=== PATIENT | female | born 1940 | race Caucasian/White ===

== ENCOUNTER 2018-10-27 20:09 | Inpatient (IN) | payer MEDICARE, BC ==
[2018-10-27] MEDS ORDERED: SODIUM CHLORIDE 0.9% 500 ML IV ONE (20:46)
[2018-10-27 21:38] LABS: BASO % 0.1 % (0-6); EOS % 0.1 % (0-6); HEMATOCRIT 43.5 % (35.0-47.0); HEMOGLOBIN 14.5 gm/dl (11.6-16.0); LYMPH % 4.8 % (16-45); MEAN CELL VOLUME 89.7 fl (81-97); MEAN CORPUSCULAR HEMOGLOBIN 29.9 pg (27-33); MEAN CORPUSCULAR HGB CONC 33.3 g/dl (32-36); MEAN PLATELET VOLUME 9.9 fl (7.4-10.4); MONO % 1.4 % (0-9); PLATELET COUNT 146 K/uL (130-400); RED BLOOD COUNT 4.85 M/uL (3.80-5.40); RED CELL DISTRIBUTION WIDTH 13.9 % (11.5-14.5); WHITE BLOOD COUNT W/O DIFF 13.2 K/uL (4.2-12.2)
[2018-10-27 21:49] LABS: LACTIC ACID 1.8 mmol/L (0.5-2.2)
[2018-10-27 21:54] LABS: ALB/GLOB RATIO 1.3 (1.1-1.8); ALBUMIN 3.9 g/dL (4.0-5.0); BILIRUBIN,TOTAL 1.2 mg/dL (0.2-1.0); CREATININE 1.5 mg/dL (0.5-0.9); TOTAL PROTEIN 6.8 g/dL (6.6-8.7)
[2018-10-27 21:55] LABS: CKMB 1.7 ng/mL (<3.77); INR 1.1; PARTIAL THROMBOPLASTIN TIME 26.1 SECONDS (24.5-39.1); PROTHROMBIN TIME (PATIENT) 11.3 SECONDS (9.5-12.1)
--- NOTE | 2018-10-27 22:04 | Emergency Department Record ---
History of Present Illness - General Chief complaint: Flank Pain Stated complaint: CRAMPS STARTING IN THE BACK GOING TO FRONT Time Seen by Provider: 10/27/18 20:36 Source: Patient Mode of Arrival: Ambulatory Limitations: No limitations - History of Present Illness Initial comments: pt started running a fever today with flank pain that rediates to the front and cramps and incontinence Onset/Timin -: Days(s) Location: RLQ Radiation: R flank Severity: Moderate Severity scale (1-10): 6 Quality: Aching, Sharp, Other Consistency: Constant Improves with: None Worsens with: None Patient : No Associated Symptoms: Other - Related Data Home Medications Medication Instructions Recorded Confirmed Last Taken Calcium Carbonate [Calcium] 500 mg PO DAILY 10/27/18 10/27/18 Unknown Docusate Sodium [Colace] 100 mg PO DAILY 10/27/18 10/27/18 Unknown Duloxetine HCl 40 mg PO DAILY 10/27/18 10/27/18 Unknown Guaifenesin [Mucinex] 600 mg PO BID 10/27/18 10/27/18 Unknown Melatonin 5 mg PO DAILY 10/27/18 10/27/18 Unknown Mirtazapine 7.5 mg PO DAILY 10/27/18 10/27/18 Unknown Multivit-Min/FA/Lycopen/Lutein 1 each PO DAILY 10/27/18 10/27/18 Unknown [Centrum Silver Tablet] Potassium Chloride 10 meq PO DAILY 10/27/18 10/27/18 Unknown Prednisone [Prednisone 5Mg] 5 mg PO DAILY 10/27/18 10/27/18 Unknown Allergies Allergy/AdvReac Type Severity Reaction Status Date / Time adhesive tape Allergy Intermediate PT UNSURE Verified 02/06/16 12:55 OF REACTION hydroxychloroquine sulfate Allergy Intermediate PT UNSURE Verified 02/06/16 12: 55 [From Plaquenil] OF REACTION nafcillin Allergy Intermediate PT UNSURE Verified 02/06/16 12:55 OF REACTION Sulfa (Sulfonamide Allergy Intermediate PT UNSURE Verified 02/06/16 12:55 Antibiotics) OF REACTION gold shot Allergy Intermediate PT UNSURE Uncoded 02/06/16 12:55 OF REACTION Travel Screening - Travel/Exposure Within Last 30 Days Have you traveled within the last 30 days?: No - Travel/Exposure Within Last Year Have you traveled outside the [place] in the last year?: No - Additonal Travel Details Have you been exposed to anyone with a communicable illness?: No - Travel Symptoms Symptom Screening: Fever (GT 100.4) Review of Systems Reviewed: No additional complaints except as noted below Constitutional: Reports: As per HPI, Fever, Weakness. Denies: Chills, Malaise, Night sweats, Weight change Eyes: Reports: As per HPI. Denies: Eye discharge, Eye pain, Photophobia, Vision change ENT: Reports: As per HPI. Denies: Congestion, Dental pain, Ear pain, Epistaxis , Hearing loss, Throat pain Respiratory: Reports: As per HPI. Denies: Cough, Dyspnea, Hemoptysis, Stridor, Wheezes Cardiovascular: Reports: As per HPI. Denies: Arrhythmia, Chest pain, Dyspnea on exertion, Edema, Murmurs, Orthopnea, Palpitations, Paroxysmal nocturnal dyspnea, Rheumatic Fever, Syncope Endocrine: Reports: As per HPI. Denies: Fatigue, Heat or cold intolerance, Polydipsia, Polyuria Gastrointestinal: Reports: As per HPI. Denies: Abdominal pain, Constipation, Diarrhea, Hematemesis, Hematochezia, Melena, Nausea, Vomiting Genitourinary: Reports: As per HPI, Incontinence. Denies: Abnormal menses, Discharge, Dyspareunia, Dysuria, Frequency, Hematuria, Retention, Urgency Musculoskeletal: Reports: As per HPI. Denies: Arthralgia, Back pain, Gout, Joint swelling, Myalgia, Neck pain Skin: Reports: As per HPI. Denies: Bruising, Change in color, Change in hair/ nails, Lesions, Pruritus, Rash Neurological: Reports: As per HPI. Denies: Abnormal gait, Confusion, Headache, Numbness, Paresthesias, Seizure, Tingling, Tremors, Vertigo, Weakness Psychiatric: Reports: As per HPI. Denies: Anxiety, Auditory hallucinations, Depression, Homicidal thoughts, Suicidal thoughts, Visual hallucinations Hematological/Lymphatic: Reports: As per HPI. Denies: Anemia, Blood Clots, Easy bleeding, Easy bruising, Swollen glands Past Medical History - SOCIAL HISTORY Smoking Status: Never smoker Alcohol Use: None Drug Use: None - RESPIRATORY Hx Respiratory Disorders: No - CARDIOVASCULAR Hx Cardio Disorders: Yes Comment:: heart murmur - NEURO Hx Neuro Disorders: Yes Comment:: vertigo - GI Hx GI Disorders: Yes Hx Liver Disease: Yes (cirrhosis) - Hx Genitourinary Disorders: Yes Hx Renal Disease: Yes (?) - ENDOCRINE Hx Endocrine Disorders: Yes Hx Diabetes: Yes Hx Thyroid Disease: Yes - MUSCULOSKELETAL Hx Musculoskeletal Disorders: Yes Hx Arthritis: Yes (RA) Hx Gout: Yes - PSYCH Hx Psych Problems: No - HEMATOLOGY/ONCOLOGY Hx Hematology/Oncology Disorders: No Family Medical History Any Significant Family History?: No Hx Cancer: Grandparents Hx Diabetes: Grandparents Hx Heart Disease: Grandparents Hx Stroke: Grandparents Physical Exam - General General Appearance: Alert, Oriented x3, Cooperative, Mild distress - Head Head exam: Normal inspection - Eye Eye exam: Normal appearance, PERRL, EOMI Pupils: Normal accommodation - ENT ENT exam: Normal exam, Mucous membranes moist, Normal external ear exam, Normal orophraynx Ear exam: Normal external inspection. negative: External canal tenderness Nasal Exam: Normal inspection. negative: Discharge, Sinus tenderness Mouth exam: Normal external inspection, Tongue normal Teeth exam: Normal inspection. negative: Dental caries Throat exam: Normal inspection. negative: Tonsillar erythema, Tonsillar exudate - Neck Neck exam: Normal inspection, Full ROM. negative: Tenderness - Respiratory Respiratory exam: Normal lung sounds bilaterally. negative: Respiratory distress - Cardiovascular Cardiovascular Exam: Regular rate, Normal rhythm, Normal heart sounds - GI/Abdominal GI/Abdominal exam: Soft, Normal bowel sounds. negative: Tenderness - Rectal Rectal exam: Deferred - exam: Deferred - Extremities Extremities exam: Normal inspection, Full ROM, Normal capillary refill. negative: Tenderness - Back Back exam: Reports: Normal inspection, Full ROM. Denies: Muscle spasm, Rash noted, Tenderness - Neurological Neurological exam: Alert, Normal gait, Oriented X3, Reflexes normal - Psychiatric Psychiatric exam: Normal affect, Normal mood - Skin Skin exam: Dry, Intact, Mottled, Petechiae, Warm, Other (chronic purpura) Course Vital Signs 10/27/18 20:21 Temperature 102.4 F H Pulse Rate 138 H Respiratory 24 Rate Blood Pressure 145/90 Pulse Ox 138 H - Reevaluation(s) Reevaluation #1: 10/28/18 00:05 pt feels better. Medical Decision Making - Lab Data Result diagrams: 10/27/18 20:50 10/27/18 20:50 Lab Results 12/21/18 12/21/18 12/21/18 Range/Units 20:50 20:50 20:50 WBC 13.2 H (4.2-12.2) K/uL RBC 4.85 (3.80-5.40) M/uL Hgb 14.5 (11.6-16.0) gm/dl Hct 43.5 (35.0-47.0) % MCV 89.7 (81-97) fl MCH 29.9 (27-33) pg MCHC 33.3 (32-36) g/dl RDW 13.9 (11.5-14.5) % Plt Count 146 (130-400) K/uL MPV 9.9 (7.4-10.4) fl Lymphocytes % 4.8 L (16-45) % Monocytes % 1.4 (0-9) % Eosinophils % 0.1 (0-6) % Basophils % 0.1 (0-6) % PT 11.3 (9.5-12.1) SECONDS INR 1.1 APTT 26.1 (24.5-39.1) SECONDS Sodium 144 (136-145) mmol/L Potassium 4.8 H (3.4-4.5) mmol/L Chloride 106 (98-107) mmol/L Carbon Dioxide 21.0 L (22-29) mmol/L Anion Gap 17.0 H (7-16) BUN 32 H (8-23) mg/dL Creatinine 1.5 H (0.5-0.9) mg/dL Estimated GFR 36 mL/min Random Glucose 179 H (74-109) mg/dL Lactic Acid 1.8 (0.5-2.2) mmol/L Calcium 9.4 (8.8-10.2) mg/dL Total Bilirubin 1.20 H (0.2-1.0) mg/dL AST 23 (10.0-35.0) U/L ALT 18 (<33) U/L Alkaline Phosphatase 104 (35-104) U/L CK-MB (CK-2) 1.7 (<3.77) ng/mL Total Protein 6.8 (6.6-8.7) g/dL Albumin 3.9 L (4.0-5.0) g/dL Globulin 2.9 (1.4-4.8) gm/dL Albumin/Globulin Ratio 1.3 (1.1-1.8) Disposition Disposition: Admit Clinical Impression: Pyelonephritis, acute Disposition: Still a Patient at [facility] Decision to Admit: Admit from ER Decision to Admit Date: 10/28/18 Decision to Admit Time: 00:05 Quality - Quality Measures Quality Measures: N/A - Blood Pressure Screening Does Patient Have Any of the Following: No Blood Pressure Classification: Hypertensive Reading Systolic Measurement: 145 Diastolic Measurement: 90 Screening for High Blood Pressure: < First Hypertensive BP, F/U Documented > [ [id number]] First Hypertensive Follow-up Interventions: Follow-up with rescreen GT 1 day and LT 4 weeks.
[2018-10-27 22:14] LABS: PLATELET ESTIMATE NORMAL (NORMAL)
[2018-10-27 23:14] LABS: URINE APPEARANCE CLOUDY; URINE BILIRUBIN SMALL (NEGATIVE); URINE BLOOD MODERATE (NEGATIVE); URINE COLOR YELLOW; URINE GLUCOSE (UA) NEGATIVE (NEGATIVE); URINE KETONE TRACE (NEGATIVE); URINE LEUKOCYTE ESTERASE LARGE (NEGATIVE); URINE NITRITE NEGATIVE (NEGATIVE); URINE UROBILINOGEN 0.2 E.U./dL (0.20 - 1.00)
[2018-10-27 23:25] LABS: URINE RBC 0 - 2 (NONE SEEN)
[2018-10-27 23:26] LABS: URINE BACTERIA 4+; URINE EPITHELIAL CELLS NONE SEEN (FEW)
[2018-10-28] MEDS ORDERED: CIPROFLOXACIN LACTATE/D5W 400 MG/200 ML BAG IVPB ONE (00:02)
[2018-10-28] MEDS ORDERED: HYDROCODONE/APAP 10/325 TABLET PO PRN (01:02)
[2018-10-28] MEDS ORDERED: ACETAMINOPHEN 500 MG TABLET PO PRN (01:02)
[2018-10-28] MEDS ORDERED: CIPROFLOXACIN LACTATE/D5W 400 MG/200 ML BAG IVPB SCH (01:02)
[2018-10-28] MEDS: PANTOPRAZOLE SODIUM 40 MG TABLET PO SCH ×3 (02:20→21:21)
[2018-10-28] MEDS: HYDROCODONE/APAP 10/325 TABLET PO SCH ×4 (02:20→21:21)
[2018-10-28] MEDS: MELATONIN 5 MG TABLET PO SCH ×2 (02:20→21:21)
[2018-10-28] MEDS: DOXYCYCLINE HYCLATE 100 MG CAPSULE PO SCH ×3 (02:20→21:21)
[2018-10-28] MEDS: GABAPENTIN 100 MG CAPSULE PO SCH ×4 (02:20→21:21)
--- NOTE | 2018-10-28 07:45 | History & Physical ---
History of Present Illness - Date of Service Date of Service for History & Physical: 10/28/18 - History of Present Illness Admitting Diagnosis: pyelonephritis History of Present Illness: Mrs. Nayak is a 77 y/o female with complaint of feeling weak and muscles spasms. The patient's daughter says that she was shaking and having chills and she took her mother's temperature and it was 102 deg. She says that she was urinating more and was not able to control it. She also reports having sharp pain of the right flank with radiation to her abdomen. The patient has diabetes II, RA, liver cirrhosis, fibromyalgia amongst other things. On admission the patient's UA was positive for leukocytes and numerous WBCs. She was admitted and started on IV Cipro q12H. PCP: Dr. Peguero Travel Screening - Travel/Exposure Within Last 30 Days Have you traveled within the last 30 days?: No - Travel/Exposure Within Last Year Have you traveled outside the [place] in the last year?: No - Additonal Travel Details Have you been exposed to anyone with a communicable illness?: No - Travel Symptoms Symptom Screening: Fever (Subjective), Joint & Muscle Aches, Chills Review of Systems Constitutional: Reports: As per HPI, Fever, Weakness. Denies: Chills, Malaise, Night sweats, Weight change Eyes: Reports: As per HPI. Denies: Eye discharge, Eye pain, Photophobia, Vision change ENT: Reports: As per HPI. Denies: Congestion, Dental pain, Ear pain, Epistaxis , Hearing loss, Throat pain Respiratory: Reports: As per HPI. Denies: Cough, Dyspnea, Hemoptysis, Stridor, Wheezes Cardiovascular: Reports: As per HPI. Denies: Arrhythmia, Chest pain, Dyspnea on exertion, Edema, Murmurs, Orthopnea, Palpitations, Paroxysmal nocturnal dyspnea, Rheumatic Fever, Syncope Endocrine: Reports: As per HPI. Denies: Fatigue, Heat or cold intolerance, Polydipsia, Polyuria Gastrointestinal: Reports: As per HPI. Denies: Abdominal pain, Constipation, Diarrhea, Hematemesis, Hematochezia, Melena, Nausea, Vomiting Genitourinary: Reports: As per HPI, Incontinence. Denies: Abnormal menses, Discharge, Dyspareunia, Dysuria, Frequency, Hematuria, Retention, Urgency Musculoskeletal: Reports: As per HPI. Denies: Arthralgia, Back pain, Gout, Joint swelling, Myalgia, Neck pain Skin: Reports: As per HPI. Denies: Bruising, Change in color, Change in hair/ nails, Lesions, Pruritus, Rash Neurological: Reports: As per HPI. Denies: Abnormal gait, Confusion, Headache, Numbness, Paresthesias, Seizure, Tingling, Tremors, Vertigo, Weakness Psychiatric: Reports: As per HPI. Denies: Anxiety, Auditory hallucinations, Depression, Homicidal thoughts, Suicidal thoughts, Visual hallucinations Hematological/Lymphatic: Reports: As per HPI. Denies: Anemia, Blood Clots, Easy bleeding, Easy bruising, Swollen glands Past Medical History - SOCIAL HISTORY Smoking Status: Never smoker Alcohol Use: None Drug Use: None - RESPIRATORY Hx Respiratory Disorders: No - CARDIOVASCULAR Hx Cardio Disorders: Yes Comment:: heart murmur - NEURO Hx Neuro Disorders: Yes Comment:: vertigo - GI Hx GI Disorders: Yes Hx Liver Disease: Yes (cirrhosis) - Hx Genitourinary Disorders: Yes Hx Renal Disease: Yes (?) - ENDOCRINE Hx Endocrine Disorders: Yes Hx Diabetes: Yes Hx Thyroid Disease: Yes - MUSCULOSKELETAL Hx Musculoskeletal Disorders: Yes Hx Arthritis: Yes (RA) Hx Gout: Yes - PSYCH Hx Psych Problems: No - HEMATOLOGY/ONCOLOGY Hx Hematology/Oncology Disorders: No Family Medical History Any Significant Family History?: No Hx Cancer: Grandparents Hx Diabetes: Grandparents Hx Heart Disease: Grandparents Hx Stroke: Grandparents H&P Meds/Allergies - Allergies Allergies: Allergies Allergy/AdvReac Type Severity Reaction Status Date / Time adhesive tape Allergy Intermediate PT UNSURE Verified 02/06/16 12:55 OF REACTION hydroxychloroquine sulfate Allergy Intermediate PT UNSURE Verified 02/06/16 12: 55 [From Plaquenil] OF REACTION nafcillin Allergy Intermediate PT UNSURE Verified 02/06/16 12:55 OF REACTION Sulfa (Sulfonamide Allergy Intermediate PT UNSURE Verified 02/06/16 12:55 Antibiotics) OF REACTION gold shot Allergy Intermediate PT UNSURE Uncoded 02/06/16 12:55 OF REACTION - Home Medications Home Medications Medication Instructions Recorded Confirmed Last Taken Calcium Carbonate [Calcium] 500 mg PO DAILY 10/27/18 10/27/18 Unknown Docusate Sodium [Colace] 100 mg PO DAILY 10/27/18 10/27/18 Unknown Duloxetine HCl 40 mg PO DAILY 10/27/18 10/27/18 Unknown Guaifenesin [Mucinex] 600 mg PO BID 10/27/18 10/27/18 Unknown Melatonin 5 mg PO DAILY 10/27/18 10/27/18 Unknown Mirtazapine 7.5 mg PO DAILY 10/27/18 10/27/18 Unknown Multivit-Min/FA/Lycopen/Lutein 1 each PO DAILY 10/27/18 10/27/18 Unknown [Centrum Silver Tablet] Potassium Chloride 10 meq PO DAILY 10/27/18 10/27/18 Unknown Prednisone [Prednisone 5Mg] 5 mg PO DAILY 10/27/18 10/27/18 Unknown - Active Medications Active Medications: Current Medications Acetaminophen (Tylenol 500mg Tab) 1,000 mg PO Q6H PRN PRN Reason: PAIN - MILD(1-4)/FEVER Hydrocodone Bitart/Acetaminophen ([place] 10mg/325mg) 1 each PO Q6H [facility] Last Admin: 10/28/18 02:20 Dose: 1 each Docusate Sodium (Colace) 100 mg PO DAILY [facility] Doxycycline Hyclate (Vibramycin) 100 mg PO BID [facility] Last Admin: 10/28/18 02:20 Dose: 100 mg Fentanyl (Duragesic) 25 mcg TD Q72H [facility] Stop: 11/04/18 11:01 Gabapentin (Neurontin) 100 mg PO TID [facility] Last Admin: 10/28/18 02:20 Dose: 100 mg Ciprofloxacin Lactate (Cipro) 400 mg in 200 mls @ 200 mls/hr IVPB Q24H [facility] Stop: 11/03/18 00:01 Melatonin (Melatonin) 5 mg PO QHS [facility] Last Admin: 10/28/18 02:20 Dose: 5 mg Mirtazapine (Remeron) 7.5 mg PO DAILY [facility] Miscellaneous (Remove Patch) 1 each TD Q72H [facility] Non-Formulary Medication (Duloxetine Hcl [Duloxetine Hcl]) 40 mg PO DAILY [facility] Non-Formulary Medication (Lactobacillus Acidophilus [Acidophilus]) 175 mg PO BID [facility] Pantoprazole Sodium (Protonix) 40 mg PO BID [facility] Last Admin: 10/28/18 02:20 Dose: 40 mg Prednisone (Prednisone 5mg) 5 mg PO DAILY [facility] Physical Exam - Vital Signs Vital Signs: Vital Signs - Last 24 Hrs Temp Pulse Pulse Resp BP BP Pulse Ox 10/28/18 06:00 98.2 F 72 16 108/48 100 10/28/18 02:09 93 H 17 10/28/18 02:00 87 16 129/48 17 L 10/28/18 01:00 97.5 F L 93 H 17 100/45 99 10/27/18 23:50 99 H 20 108/63 97 10/27/18 21:45 99.4 F 110 H 20 123/61 98 10/27/18 20:21 102.4 F H 138 H 24 145/90 100 - General General Appearance: Alert, Oriented x3, Cooperative, Mild distress Limitations: No limitations - Head Head exam: Normal inspection - Eye Eye exam: Normal appearance, PERRL, EOMI Pupils: Normal accommodation - ENT ENT exam: Normal exam, Mucous membranes moist, Normal external ear exam, Normal orophraynx Ear exam: Normal external inspection. negative: External canal tenderness Nasal Exam: Normal inspection. negative: Discharge, Sinus tenderness Mouth exam: Normal external inspection, Tongue normal Teeth exam: Normal inspection. negative: Dental caries Throat exam: Normal inspection. negative: Tonsillar erythema, Tonsillar exudate - Neck Neck exam: Normal inspection, Full ROM. negative: Tenderness - Respiratory Respiratory exam: Normal lung sounds bilaterally. negative: Respiratory distress - Cardiovascular Cardiovascular Exam: Regular rate, Normal rhythm, Normal heart sounds - GI/Abdominal GI/Abdominal exam: Soft, Normal bowel sounds. negative: Tenderness - Rectal Rectal exam: Deferred - exam: Deferred - Extremities Extremities exam: Normal inspection, Full ROM, Normal capillary refill. negative: Tenderness - Back Back exam: Reports: Normal inspection, Full ROM. Denies: Muscle spasm, Rash noted, Tenderness - Neurological Neurological exam: Alert, Normal gait, Oriented X3, Reflexes normal - Psychiatric Psychiatric exam: Normal affect, Normal mood - Skin Skin exam: Dry, Intact, Mottled, Petechiae, Warm, Other (chronic purpura) Results - Labs Result Diagrams: 10/27/18 20:50 10/27/18 20:50 Labs Last 24 Hours: Laboratory Results - last 24 hr 10/27/18 10/27/18 10/27/18 20:50 20:50 20:50 WBC 13.2 H RBC 4.85 Hgb 14.5 Hct 43.5 MCV 89.7 MCH 29.9 MCHC 33.3 RDW 13.9 Plt Count 146 MPV 9.9 Neutrophils % 90.0 H Band Neutrophils % 8.0 H Lymphocytes % 4.8 L Monocytes % 1.4 Eosinophils % 0.1 Basophils % 0.1 Lymphocytes 2.0 L Monocytes Not Reportable Platelet Estimate Normal RBC Morphology Normal PT 11.3 INR 1.1 APTT 26.1 Sodium 144 Potassium 4.8 H Chloride 106 Carbon Dioxide 21.0 L Anion Gap 17.0 H BUN 32 H Creatinine 1.5 H Estimated GFR 36 Random Glucose 179 H Lactic Acid 1.8 Calcium 9.4 Total Bilirubin 1.20 H AST 23 ALT 18 Alkaline Phosphatase 104 CK-MB (CK-2) 1.7 Total Protein 6.8 Albumin 3.9 L Globulin 2.9 Albumin/Globulin Ratio 1.3 Urine Color Urine Appearance Urine pH Ur Specific [place] Urine Protein Urine Glucose (UA) Urine Ketones Urine Blood Urine Nitrite Urine Bilirubin Urine Urobilinogen Ur Leukocyte Esterase Urine RBC Urine WBC Ur Epithelial Cells Urine Bacteria 10/27/18 23:05 WBC RBC Hgb Hct MCV MCH MCHC RDW Plt Count MPV Neutrophils % Band Neutrophils % Lymphocytes % Monocytes % Eosinophils % Basophils % Lymphocytes Monocytes Platelet Estimate RBC Morphology PT INR APTT Sodium Potassium Chloride Carbon Dioxide Anion Gap BUN Creatinine Estimated GFR Random Glucose Lactic Acid Calcium Total Bilirubin AST ALT Alkaline Phosphatase CK-MB (CK-2) Total Protein Albumin Globulin Albumin/Globulin Ratio Urine Color Yellow Urine Appearance Cloudy Urine pH 5.5 Ur Specific [place] 1.025 Urine Protein 100 mg/dl H Urine Glucose (UA) Negative Urine Ketones Trace H Urine Blood Moderate Urine Nitrite Negative Urine Bilirubin Small H Urine Urobilinogen 0.2 Ur Leukocyte Esterase Large H Urine RBC 0 - 2 Urine WBC Too numerous to cnt Ur Epithelial Cells None seen Urine Bacteria 4+ VTE H&P Assessment - Risk for VTE Risk for VTE: Yes Risk Level: High Risk Assessment Date: 10/28/18 Risk Assessment Time: 11:02 VTE Orders Placed or Will Be Placed: Yes Plan - Inpatient Certification Inpatient Certification: Admit to inpatient care: Based on my medical assessment, after consideration of patient's risk factors (age, co-morbidities and patient presenting symptoms and acuity), I expect that this patient will remain in the hospital greater than or equal to two midnights and that the services needed warrant inpatient care because: Patient Risk Factors: Complicated UTI/Pyelonephritis Estimated length of stay: 3 days The patient may reasonably be expected to be discharged or transferred to a hospital within 96 hours after admission to [facility]. I certify that my determination is in accordance with my understanding of Medicare requirements for reasonable and necessary inpatient services. 10/28/18 11:06 - Detailed Diagnosis and Plan (1) Pyelonephritis, acute Current Visit: Yes Status: Acute Base Code: N10 - ACUTE PYELONEPHRITIS Comment: 10/28/18: - UA + WBCs, leukocytes, UCX pending. - On Cipro 400mg IV Q12H, Tylenol 1000 Q6H PRN for fever/pain. - Repeat labs: CBC w/ diff, BMP in the morning. (2) Diabetes mellitus, type II Current Visit: Yes Status: Acute Base Code: E11.9 - TYPE 2 DIABETES MELLITUS WITHOUT COMPLICATIONS Comment: 10/28/18: - Resume humalog low dose sliding scale. - CBG AcHS, Diabetic diet (3) Rheumatoid arthritis Current Visit: Yes Status: Acute Base Code: M06.9 - RHEUMATOID ARTHRITIS, UNSPECIFIED Comment: 10/28/18: - On chronic Prednisone therapy and pain managed [facility]. - Resume 5mg daily dosing. (4) Liver cirrhosis Current Visit: Yes Status: Acute Base Code: K74.60 - UNSPECIFIED CIRRHOSIS OF LIVER Comment: 10/28/18: - 2/2 immunotherapy treatment for RA (5) Wheelchair bound Current Visit: Yes Status: Acute Base Code: Z99.3 - DEPENDENCE ON WHEELCHAIR Comment: 10/28/18: - wheelchair dependent due to RA and weakness. - Fall precautions with bed alarm, assistance with toileting. (6) DVT prophylaxis Current Visit: Yes Status: Acute Base Code: [id number] - Comment: 10/28/18: - Lovenox 40mg daily (7) Full code status Current Visit: Yes Status: Acute Base Code: Z78.9 - OTHER SPECIFIED HEALTH STATUS Comment: 10/28/18: - Discussed code status with patient and daughter. Pt is to remain full code.
[2018-10-28] MEDS: PREDNISONE 5 MG TAB PO SCH (09:21)
[2018-10-28] MEDS: MIRTAZAPINE 15 MG TABLET PO SCH (09:22)
[2018-10-28] MEDS: DOCUSATE SODIUM 100 MG CAPSULE PO SCH (09:22)
[2018-10-28] MEDS: LORAZEPAM 0.5 MG TABLET PO ONE ×2 (09:31→10:07)
[2018-10-28] MEDS ORDERED: DULOXETINE HCL 40 MG PO SCH (10:00)
[2018-10-28] MEDS ORDERED: FENTANYL 25MCG PATCH TD SCH (11:00)
[2018-10-28] MEDS: GUAIFENESIN 600 MG TABCR PO SCH ×2 (11:32→21:22)
[2018-10-28] MEDS: NOVOLOG FLEXPEN (INSULIN ASPART) 100 UNITS/ML SQ SCH ×2 (13:40→17:38)
[2018-10-28] MEDS: ENOXAPARIN 40 MG/0.4 ML SYR SQ SCH (14:04)
[2018-10-29] MEDS ORDERED: CIPROFLOXACIN LACTATE/D5W 400 MG/200 ML BAG IVPB SCH
[2018-10-29] MEDS: HYDROCODONE/APAP 10/325 TABLET PO SCH ×2 (02:00→08:01)
[2018-10-29 06:18] LABS: BASO % 0.2 % (0-6); EOS % 1.3 % (0-6); HEMATOCRIT 36.6 % (35.0-47.0); LYMPH % 9.1 % (16-45); MEAN CELL VOLUME 91.3 fl (81-97); MEAN CORPUSCULAR HEMOGLOBIN 29.9 pg (27-33); MEAN CORPUSCULAR HGB CONC 32.8 g/dl (32-36); MEAN PLATELET VOLUME 9.4 fl (7.4-10.4); MONO % 3.7 % (0-9); PLATELET COUNT 98 K/uL (130-400); RED BLOOD COUNT 4.01 M/uL (3.80-5.40); RED CELL DISTRIBUTION WIDTH 13.7 % (11.5-14.5)
[2018-10-29 06:28] LABS: CREATININE 1.4 mg/dL (0.5-0.9)
[2018-10-29 06:50] LABS: PLATELET ESTIMATE NORMAL (NORMAL)
[2018-10-29] MEDS: NOVOLOG FLEXPEN (INSULIN ASPART) 100 UNITS/ML SQ SCH (08:03)
[2018-10-29] MEDS: DOCUSATE SODIUM 100 MG CAPSULE PO SCH (09:46)
[2018-10-29] MEDS: ENOXAPARIN 40 MG/0.4 ML SYR SQ SCH (09:46)
[2018-10-29] MEDS: DOXYCYCLINE HYCLATE 100 MG CAPSULE PO SCH (09:46)
[2018-10-29] MEDS: PREDNISONE 5 MG TAB PO SCH (09:46)
[2018-10-29] MEDS: PANTOPRAZOLE SODIUM 40 MG TABLET PO SCH (09:46)
[2018-10-29] MEDS: GABAPENTIN 100 MG CAPSULE PO SCH (09:47)
[2018-10-29] MEDS: GUAIFENESIN 600 MG TABCR PO SCH (09:47)
[2018-10-29] MEDS: MIRTAZAPINE 15 MG TABLET PO SCH (09:47)
[2018-10-29] MEDS ORDERED: BIFIDOBACTERIUM INFANTIS 4 MG CAPSULE PO SCH (10:00)
--- NOTE | 2018-10-29 11:58 | Discharge Summary ---
Providers Discharge Summary Date: 10/29/18 Date of admission: 10/28/18 00:40 Attending physician: SHELLY BARRIOS Primary care physician: OLIVIA MCCORMICK M.D. Physical Exam - Vital Signs Vital Signs: Vital Signs - Last 24 Hrs Temp Pulse Resp BP BP Pulse Ox 10/29/18 10:00 98.2 F 99 H 18 174/87 100 10/29/18 08:14 16 10/29/18 06:00 98.7 F 84 18 171/71 100 10/28/18 22:00 99.0 F 92 H 18 175/79 97 10/28/18 21:00 94 H 16 10/28/18 16:00 98.2 F 94 H 16 153/62 100 - General General Appearance: Alert, Oriented x3, Cooperative, Mild distress Limitations: No limitations - Head Head exam: Normal inspection - Eye Eye exam: Normal appearance, PERRL, EOMI Pupils: Normal accommodation - ENT ENT exam: Normal exam, Mucous membranes moist, Normal external ear exam, Normal orophraynx Ear exam: Normal external inspection. negative: External canal tenderness Nasal Exam: Normal inspection. negative: Discharge, Sinus tenderness Mouth exam: Normal external inspection, Tongue normal Teeth exam: Normal inspection. negative: Dental caries Throat exam: Normal inspection. negative: Tonsillar erythema, Tonsillar exudate - Neck Neck exam: Normal inspection, Full ROM. negative: Tenderness - Respiratory Respiratory exam: Normal lung sounds bilaterally, Other (bronchial breaths sounds). negative: Respiratory distress - Cardiovascular Cardiovascular Exam: Regular rate, Normal rhythm, Normal heart sounds Peripheral Pulses: 3+: Radial (R), Radial (L), Dorsalis Pedis (R), Dorsalis Pedis (L) - GI/Abdominal GI/Abdominal exam: Soft, Normal bowel sounds. negative: Tenderness - Rectal Rectal exam: Deferred - exam: Deferred - Extremities Extremities exam: Normal inspection, Full ROM, Normal capillary refill. negative: Tenderness - Back Back exam: Reports: Normal inspection, Full ROM. Denies: Muscle spasm, Rash noted, Tenderness - Neurological Neurological exam: Alert, Normal gait, Oriented X3, Reflexes normal - Psychiatric Psychiatric exam: Normal affect, Normal mood - Skin Skin exam: Dry, Intact, Mottled, Petechiae, Warm, Other (chronic purpura) Hospitalization - Hospitalization Admission Diagnosis: pyelonephritis - Problem List/Discharge Diagnosis (1) Pyelonephritis, acute Current Visit: Yes Status: Acute Base Code: N10 - ACUTE PYELONEPHRITIS Comment: 10/28/18: - UA + WBCs, leukocytes, UCX pending. - On Cipro 400mg IV Q12H change to 500mg PO BID x 5 days, Tylenol 1000 Q6H PRN for fever/pain. - Repeat labs: WBCs decrease to 9.0 (2) Diabetes mellitus, type II Current Visit: Yes Status: Acute Base Code: E11.9 - TYPE 2 DIABETES MELLITUS WITHOUT COMPLICATIONS Comment: 10/29/18: - Resume humalog low dose sliding scale. - CBG AcHS, Diabetic diet (3) Rheumatoid arthritis Current Visit: Yes Status: Acute Base Code: M06.9 - RHEUMATOID ARTHRITIS, UNSPECIFIED Comment: 10/29/18: - On chronic Prednisone therapy and pain managed [facility]. - Resume 5mg daily dosing. (4) Liver cirrhosis Current Visit: Yes Status: Acute Base Code: K74.60 - UNSPECIFIED CIRRHOSIS OF LIVER Comment: 10/29/18: - 2/2 immunotherapy treatment for RA (5) Wheelchair bound Current Visit: Yes Status: Acute Base Code: Z99.3 - DEPENDENCE ON WHEELCHAIR Comment: 10/29/18: - wheelchair dependent due to RA and weakness. - Fall precautions with bed alarm, assistance with toileting. (6) DVT prophylaxis Current Visit: Yes Status: Acute Base Code: [id number] - Comment: 10/29/18: - Lovenox 40mg daily (7) Full code status Current Visit: Yes Status: Acute Base Code: Z78.9 - OTHER SPECIFIED HEALTH STATUS Comment: 10/29/18: - Discussed code status with patient and daughter. Pt is to remain full code. - Hospitalization Course Hospital Course: Mrs. Nayak is a 77 y/o female with complaint of feeling weak and muscles spasms. The patient's daughter says that she was shaking and having chills and she took her mother's temperature and it was 102 deg. She says that she was urinating more and was not able to control it. She also reports having sharp pain of the right flank with radiation to her abdomen. The patient has diabetes II, RA, liver cirrhosis, fibromyalgia amongst other things. On admission the patient's UA was positive for leukocytes and numerous WBCs. She was admitted and started on IV Cipro q12H. 10/29: The patient is doing well and has no complaint this morning. Her white count has gone down and she has been afebrile. Urine culture is still pending. She will be discharged on Ciprofloxacin 500mg BID for another 5 days and follow up with her PCP within 5-7 days. PCP: Dr. Peguero Procedures: Imaging and X-Rays 10/27/18 20:46 CHEST 2 VIEWS [RAD] Stat Abnormal Labs: Abnormal Lab Results 10/27/18 10/27/18 10/27/18 Range/Units 20:50 20:50 23:05 WBC 13.2 H (4.2-12.2) K/uL Plt Count (130-400) K/uL Neutrophils % 90.0 H (47-80) % Band Neutrophils % 8.0 H (0-5) % Lymphocytes % 4.8 L (16-45) % Lymphocytes 2.0 L (16-45) % Potassium 4.8 H (3.4-4.5) mmol/L Carbon Dioxide 21.0 L (22-29) mmol/L Anion Gap 17.0 H (7-16) BUN 32 H (8-23) mg/dL Creatinine 1.5 H (0.5-0.9) mg/dL POC Glucose (70-110) mg/dL Random Glucose 179 H (74-109) mg/dL Total Bilirubin 1.20 H (0.2-1.0) mg/dL Albumin 3.9 L (4.0-5.0) g/dL Urine Protein 100 mg/dl H (NEGATIVE) Urine Ketones Trace H (NEGATIVE) Urine Bilirubin Small H (NEGATIVE) Ur Leukocyte Esterase Large H (NEGATIVE) 10/28/18 10/29/18 10/29/18 Range/Units 17:00 06:10 06:10 WBC (4.2-12.2) K/uL Plt Count 98 L (130-400) K/uL Neutrophils % 91.0 H (47-80) % Band Neutrophils % (0-5) % Lymphocytes % 9.1 L (16-45) % Lymphocytes 4.0 L (16-45) % Potassium (3.4-4.5) mmol/L Carbon Dioxide (22-29) mmol/L Anion Gap (7-16) BUN 28 H (8-23) mg/dL Creatinine 1.4 H (0.5-0.9) mg/dL POC Glucose 222 H (70-110) mg/dL Random Glucose 137 H (74-109) mg/dL Total Bilirubin (0.2-1.0) mg/dL Albumin (4.0-5.0) g/dL Urine Protein (NEGATIVE) Urine Ketones (NEGATIVE) Urine Bilirubin (NEGATIVE) Ur Leukocyte Esterase (NEGATIVE) Discharge Medications - Discharge Medications Prescriptions: Ciprofloxacin HCl [Cipro] 500 mg PO Q12HR 5 Days #10 tablet Home Medications: Ambulatory Orders Cholecalciferol (Vitamin D3) [Vitamin D3] 2,000 unit PO DAILY 09/24/15 [Last Taken 02/06/16] Doxycycline Hyclate 100 mg PO BID 09/24/15 [Last Taken 02/06/16] Fentanyl [Duragesic] 25 mcg TD Q72H 09/24/15 [Last Taken 02/06/16] Gabapentin [Neurontin] 100 mg PO TID 09/24/15 [Last Taken 02/06/16] Hydrocodone/Acetaminophen [Hydrocodone/Acetaminophen 10mg/325mg] 1 tab PO Q6H PRN 09/24/15 [Last Taken 02/06/16] Lactobacillus Acidophilus [Acidophilus] 175 mg PO BID 09/24/15 [Last Taken 02/05] Pantoprazole Sodium [Protonix] 40 mg PO BID 09/24/15 [Last Taken 02/06/16] Calcium Carbonate [Calcium] 500 mg PO DAILY 10/27/18 [Last Taken Unknown] Docusate Sodium [Colace] 100 mg PO DAILY 10/27/18 [Last Taken Unknown] Duloxetine HCl 40 mg PO DAILY 10/27/18 [Last Taken Unknown] Guaifenesin [Mucinex] 600 mg PO BID 10/27/18 [Last Taken Unknown] Melatonin 5 mg PO DAILY 10/27/18 [Last Taken Unknown] Mirtazapine 7.5 mg PO DAILY 10/27/18 [Last Taken Unknown] Multivit-Min/FA/Lycopen/Lutein [Centrum Silver Tablet] 1 each PO DAILY 10/27/18 [Last Taken Unknown] Potassium Chloride 10 meq PO DAILY 10/27/18 [Last Taken Unknown] Prednisone [Prednisone 5Mg] 5 mg PO DAILY 10/27/18 [Last Taken Unknown] Ciprofloxacin HCl [Cipro] 500 mg PO Q12HR 5 Days #10 tablet 10/29/18 [Last Taken Unknown] Guaifenesin [Mucinex] 600 mg PO BID tabcr 10/29/18 [Last Taken Unknown] Discharge Plan - Discharge Instructions Diet at Discharge: Diabetic Diet, Low Salt Diet Additional Instructions: Continue with Cipro 500mg, 1 tab twice daily x 5 days. Please follow up with your PCP within 5-7 days. Quality Measures - Quality Measures Quality Measures: Advance Directives, Documentation of Current Medications in Medical Record, Elder Maltreatment Screen and Follow-Up Plan, Screening for High Blood Pressure and F/U Documented - Current Medications Quality Measure: Measure #130: Documentation of Current Medications Documentation of Current Medications: <Current Medications Documented/Reviewed> [G7061] - Blood Pressure Screening Quality Measure: Screening for High Blood Pressure and Follow-Up Documented Does Patient Have Any of the Following: Active Dx of HTN Blood Pressure Classification: Hypertensive Reading Systolic Measurement: 145 Diastolic Measurement: 90 Screening for High Blood Pressure: Patient Exclusion, Hx of HTN [G9744] - Advance Directives Quality Measure: Measure #47: Care Plan Advance Directives Established: No Advance Directives Information Provided To Patient: No Advance Directives on File: No Living Will: Yes Advance Care Planning: <Care Plan/Decision Maker Not Decided; Discussed & Documented> [7658T] - Elder Abuse Suspicion Index Screening: Elder Abuse Suspicion Index Screening Rely on people for bathing, dressing, shopping, banking, etc: Yes Prevented from getting food, clothes, medication, etc: No Made to feel shamed or threatened by someone: No Forced to sign papers or use money against will: No Feel afraid, touched in ways not wanted or hurt physically: No Poor eye contact, withdrawn, malnourished, cuts or bruises: No Screening Result: Negative result EASI Reference Information: Ted LUEVANO, Tom C, Luis Antonio D, Ciara M.Development and validation of a tool to assist physicians identification of elder abuse: The Elder Abuse Suspicion Index (EASI ). Journal of Elder Abuse and Neglect, 2008; 20 (3): 276-300. - Elder Maltreatment Screen Quality Measures: Elder Maltreatment Screen and Follow-Up Plan Elder Maltreatment Screen: <Negative, No Follow-Up Plan Required> [G8734]
--- NOTE | 2018-10-30 04:43 | RADIOLOGY REPORT ---
DATE: 10/27/2018 at 10:00 p.m. EXAM: TWO-VIEW CHEST. HISTORY: FEVER. TECHNIQUE: PA and lateral views. COMPARISON: None. FINDINGS: Thoracic dextroscoliosis. Low anterior cervical fusion and a posterior lumbar fusion partially seen. Advanced degenerative arthritis in both shoulders. Mild cardiomegaly. Calcification and torsion of the aorta. No definite acute infiltrate identified. Anterior wedging of the lower thoracic vertebrae may actually represent a fusion anomaly. Mild elevation of the right hemidiaphragm anteriorly. IMPRESSION: 1. ELEVATION OF THE RIGHT HEMIDIAPHRAGM ANTERIORLY. NO DEFINITE ACUTE INFILTRATE SEEN. 2. MILD CARDIOMEGALY. 3. NUMEROUS CHRONIC-APPEARING SKELETAL FINDINGS INCLUDING LOW ANTERIOR CERVICAL FUSION, THORACIC DEXTROSCOLIOSIS, LOW LUMBAR POSTERIOR FUSION, ADVANCED DEGENERATIVE ARTHRITIS OF THE SHOULDERS, AND ANTERIOR WEDGING OF A LOWER THORACIC VERTEBRAL SEGMENT WHICH MAY REPRESENT A FUSION ANOMALY OF TWO ADJACENT LOWER THORACIC VERTEBRAE. COMPARISON WITH OLD FILMS WOULD BE USEFUL TO CONFIRM A CHRONIC APPEARANCE OF THE WEDGED LOWER THORACIC VERTEBRAL SEGMENT. JOB NUMBER: [id number] [facility]
[2018-10-31] MEDS ORDERED: REMOVE PATCH 1 EACH MISC TD SCH (11:00)
== END 2018-10-29 12:32 | disposition home or self-care (01) ==
LOC: ER 20:09 → MEDSURG 10-28 00:40
PROVIDERS: ADMIT Internal Medicine; ATTEND Internal Medicine
DX: N10 Acute pyelonephritis (principal); E11.9 Type 2 diabetes mellitus without complications; M06.9 Rheumatoid arthritis, unspecified; M79.7 Fibromyalgia; K74.60 Unspecified cirrhosis of liver; Z99.3 Dependence on wheelchair; Z86.14 Personal history of Methicillin resistant Staphylococcus aureus infection
CPT/HCPCS: 99285 ×2; 96365; 83605; 85730; 85610; 82553; 80053; 81001; 85027; 71046; J0744; 36416; 80048; 82948; 99223; 99239; J1650; J7512